=== PATIENT | female | born 1975 | race Caucasian/White ===

== ENCOUNTER 2025-01-31 07:20 | Emergency (ER) | payer BC, SELFPAY ==
--- OUTSIDE RECORDS SUMMARY | 2025-01-31 07:23 | XMS_ITS | Clinical Summary ---
Author Organization [facility] Address [address] [place] [id number] Care Team Providers Care Basic Sciences Dean Name Role Phone Karen Larkin MD Primary Care Provider Allergies No known active allergies Medications chlorthalidone (HYGROTON) 25 mg tabletIndications:P rimary hypertension Take 1 Tablet (25 mg) by mouth once daily. 100 Tablet 3 4 Active escitalopram oxalate (LEXAPRO) 20 mg tabletIndications:G AD (generalized anxiety disorder) Take 1 Tablet (20 mg) by mouth once daily in the morning. 100 Tablet 3 4 Active levothyroxine (SYNTHROID) 25 mcg tabletIndications:H ypothyroidism (acquired) Take 1.5 Tablets (37.5 mcg) by mouth before breakfast. 135 Tablet 3 4 Active ondansetron (ZOFRAN ODT) 4 mg disintegrating tabletIndications:N ausea [address] 1 Tablet (4 mg) on the tongue every 8 hours if needed for Nausea/Vomit ing. 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 Chronic gastritis 06/16/2018 Endometriosis of pelvic peritoneum 09/08/2011 Resolved Problems Problem Noted Date Diagnosed Date Resolved Date Screening for cervical cancer 12/12/2022 12/12/2022 Immunizations Immunization Administration Dates Next Due COVID-19 vaccine ([employer] 30mcg/0.3mL) PF, MDV 10/22/2021,03/12/2021,02/18/2021 Influenza A (H1N1), Inactivated 12/07/2009 Influenza, IIV3 (Age 6-35 mos) 09/08/2011 Influenza, IIV3 (Age >=3 years) 09/08/2011,08/28 Influenza, IIV4 08/17/2019, 7,08/20/2016,2012 Influenza,CCIIV4 PRESERV FREE 09/17/2018 Td, Preservative Free (age > = 7 Years) 07/08/2019 Tdap 07/07/2024 Family History Medical History Relation Name Comments Diabetes type I Father Hyperlipidemia Father Hypertension Father Diabetes type II Mother Hyperlipidemia Mother Hypertension Mother Genetic Other DM--Father,Sist er~HI--PGF~HTN--Mother Diabetes type I Sister Cancer-breast No Family History Cancer-ovarian No Family History Relation Name Status Comments Father Mother Other Sister Social History Tobacco Use Types Packs/Day Years Used Date Smoking Tobacco: Never Smokeless Tobacco: Never Tobacco Cessation:Counseling Given: Not Answered Alcohol Use Standard Drinks/Week Comments Not Currently 0 (1 standard drink = 0.6 oz pur e alcohol) socially PHQ-2 Answer Date Recorded PHQ-2 TOTAL SCORE 0 08/04/2024 Social Connections Answer Date Recorded Do you often feel lonely or isolated from those around you? 0 12/11/2023 Financial Resource Strain Answer Date R ecorded Difficulty of Paying Living Expenses 3 12/11/2023 Difficulty of Paying Living Expenses Not on file 12/11/2023 Food Insecurity Answer Date Recorded Do you worry your food will run out before you are able to buy more? 1 12/11/2023 Transportation Needs Answer Date Record ed Does lack of transportation keep you from medica l appointments? 1 12/11/2023 Does lack of transportation keep you from work, meetings or getting things that you need? 1 12/11/2023 Housing Stability Answer Date Recorded What is your housing situation today? 1 12/11/2023 Utilities Answer Date Recorded Do you have trouble paying f or utilities (for example, heat, electricity, water, phone)? 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 Gender Identity Not on file Sexual Orientation Not on file Obstetrics History Last Filed Vital Signs Vital Sign Reading Time Taken Comments Blood Pressure 129/84 08/04/2024 10:02 AM CDT Pulse 80 08/04/2024 10:02 AM CDT Temperature 36.8 C (98.3 F) 03/01/2024 11:57 AM CDT Respiratory Rate 18 07/06/2022 9:34 AM CDT Oxygen Saturation 99% 08/04/2024 10:02 AM CDT Inhaled Oxygen Concentration - - Weight 76.2 kg (168 lb) 08/04/2024 10:02 AM CDT Height 172.8 cm (5' 8.03) 12/25/2023 3:35 PM CS T Body Mass Index 25.52 12/25/2023 3:35 PM EQUIPMENT PROCESSOR Plan of Treatment Health Maintenance Due Date Last Done Comments HIV for age 15-65 1989 Hepatitis C screening for ag e 18-79 1992 Pneumococcal series for age 50+ (1 of 1 - PCV) 2024 Zoster (shingles) series for age 50+ (1 of 2) 2024 COVID-19 vaccine series (2023- season) 2024 10/22/2021, 03/12/2021, 02/18/2021 Influenza Vaccine (#1) 2024 9, 09/17/2018, 08/26/2017, Additional history exists BMI (ht and wt on same day) for age 18+ 12/25/2024 12/25/2023, 12/12/2022, 07/23/2022, Additional history exists Mammogram for age 45-75 07/07/2025 07/07/20 24, 12/19/2022, 05/10/2021 Depression screening for age 12+ 08/04/2025 08/04/2024, 12/12/2022, 08/16/2021, Additional history exists Lipids for age 45-75 12/25/2028 12/25/2023, 12/12/19 23 Colonoscopy through age 75 01/10/2033 01/10/2023 Tetanus booster 07/07/2034 07/07/2024, 07/08/2019 Tdap Completed 07/07/2024 Pap test for age 21-65 Discontinued Procedures Procedure Name Priority Date/Time Associated Diagnosis Comments XR MAMMO TEGAN BILAT SCREEN IMPLANT Routine 07/07/2024 3:23 PM CDT Visit for screening mammogram LIPID PANEL W REFLEX MEASURED LDL Routine 12/25/2023 4:30 PM EQUIPMENT PROCESSOR Lipid screening SCAN-COLONOSCOPY 01/10/2023 3:00 PM EQUIPMENT PROCESSOR from Last 3 Months or Most Recently Relevant to Health Maintenance Results * XR MAMMO TEGAN BILAT SCREEN IMPLANT (07/07/2024 3:23 PM CDT) Anatomical Region Laterality Modality BREASTS, Breast Left, Breast Right Bilateral Mammography Impressions 07/07/2024 3:32 PM CDT There is no radiographic evidence for malignancy. Recommend annual mammograms. MAMMOGRAM ASSESSMENT: ACR 2 Benign PATIENTS: You will also receive a letter with your examination results in an easy to read format. If you have questions about your results, please contact your referring provider. Narrative 07/07/2024 3:32 PM CDT For Patients: As a result of the Century Cures Act, medical imaging exams and procedure reports are released immediately into your electronic medical record. You may view this report before your referring provider. If you have questions, please contact your health care provider. XR MAMMO TEGAN BILAT SCREEN IMPLANT [[id number]] CLINICAL HISTORY: This is an asymptomatic 49 y.o. patient. INDICATION FOR EXAM: Mammogram Screening. TECHNIQUE: CC & MLO views were obtained. Implant displacement views were obtained. This study was evaluated with the assistance of Computer-Aided Detection. Breast Tomosynthesis was used in interpretation. COMPARISON FILMS: Yes 12/19/22 [facility] 05/10/21 [facility] FINDINGS: There are scattered areas of fibroglandular density. No suspicious masses or microcalcifications. There are breast implant(s) present.. us Karen Larkin MD MAMMO Final Resul t * (ABNORMAL) LIPID PANEL W REFLEX MEASURED LDL (12/25/2023 4:30 PM EQUIPMENT PROCESSOR) CHOLESTEROL,TOTAL 204(H) 100 - 199 mg/dL 12/26/2023 3:07 PM EQUIPMENT PROCESSOR [facility] Comment: Cholesterol, Total Reference Ranges Desirable <200 mg/dL Borderline 200-239 mg/dL High >=240 mg/dL TRIGLYCERIDES 80 <150 mg/dL 12/26/2023 3:07 PM EQUIPMENT PROCESSOR [facility] HDL CHOLESTEROL 87 >40 mg/dL 3:07 PM EQUIPMENT PROCESSOR [facility] NON-HDL CHOLESTEROL 117 <145 mg/dl 12/26/2023 3:07 PM EQUIPMENT PROCESSOR [facility] CHOL/HDL RATIO 2.34 <4.50 12/26/2023 3:07 PM EQUIPMENT PROCESSOR [facility] LDL CHOLESTEROL 101 <=130 mg/dL 12/26/2023 3:07 PM EQUIPMENT PROCESSOR [facility] VLDL CHOLESTEROL 16 <=30 mg/dL 12/26/2023 3:07 PM EQUIPMENT PROCESSOR [facility] PROVIDER ORDERED STATUS RANDOM 12/26/2023 3:07 PM EQUIPMENT PROCESSOR [facility] Blood BLOOD SPECIMEN / Unknown Venipuncture / Unknown 12/25/2023 4:30 PM EQUIPMENT PROCESSOR 12/25/2023 4:30 PM EQUIPMENT PROCESSOR us Karen Larkin MD CHEMISTRY Final Resul t [facility] [address] [place] [address], [place] * SCAN-COLONOSCOPY (01/10/2023 3:00 PM EQUIPMENT PROCESSOR) Narrative Procedure Note Bernardo Motley MD - 01/10/2023 2:11 PM CST [facility] [address], [address], [place] [address] Patient Name: Marisa Uriarte Gender: Female Exam Date: 01/10/2023 Visit Number: [id number] Age: 47 Years Date of : 1975 Attending MD: Bernardo Motley MD Medical Record#: [id number] Procedure: Colonoscopy Indications: Diarrhea Follow up adenomatous polyp(s) Referring MD: Karen Larkin MD Primary MD: Karen Larkin MD Medications: Admitting Medications: 0.9% Normal Saline at TK Intra Procedure Medications: Patient received monitored anesthesia care. Complications: No immediate complications Procedure: An examination of the heart and lungs was performed and found to be withinacceptable limits. . The patient was therefore deemed a reasonablecandidate for endoscopy and sedation. The risks and benefits of the procedure were explained to the patient.After obtaining informed consent, the patient received monitoredanesthesia care and I passed the scope without difficulty via the rectum to the ileum. The appendiceal orificeand ic valve were identified. The scope was retroflexed during theexamination The quality of the prep was good (Aron/Gat Double Split). This was a complete examination throughout the entire colon. Findings: Normal finding. Location - ileum. Normal finding. Location - entire colon otherwise. Biopsy taken.Maneuver - random biopsies. Polyp location: descending colon. Quantity: 2. Size: 3 mm, 3 mm. Polypshape: sessile. Maneuver: polypectomy was performed with a cold snare. Removal: complete. Retrieval: complete. Bleeding: none. Diverticulosis. Location: - sigmoid. Size: small. Quantity:few. No inflammation present. Hemorrhoids. Small internal hemorrhoids without bleeding. Remainder of the exam is normal. Impression: Colorectal polyps Diverticulosis of colon without diverticulitis Hemorrhoids, internal Preliminary Plan: Repeat colonoscopy in 5 years Recommendation Comments: We will follow up the biopsy results and let youknow once available Pathology Results: A: COLON, DESCENDING, POLYPS: 1. Tubular adenomas (2) 2. Negative for high grade dysplasia 3. Per the colonoscopy report: a. Polyp sizes: 3 mm b. Resection: Complete c. Retrieval: Complete B: COLON, RANDOM, BIOPSY: 1. Normal colonic mucosa 2. Negative for microscopic, active, and chronic colitis MICROSCOPIC A: Performed B: Performed Electronically signed by: Masoud Pruett MD Interpreted at [facility], [address] [place], [place] [id number] Orders Instruction(s)/Education: Instruction/Education Timeframe Assessment Colon Cancer Prevention K63.5 Colon Polyps K63.5 Diverticulosis/Diverticulitis K63.5 Hemorrhoids K63.5 High Fiber Diet K63.5 Final Plan: Repeat colonoscopy in 5 years. We will attempt to contact you at appropriate intervals via U.S. mail. Wemay not be able to find you or contact you at that time, therefore youshould know that the responsibility for following our recommendation restswith you. If you don't hear from us at the time your procedure is due,please contact our office to schedule an appointment. If your contactinformation should change, please contact our office so that we can updateyour record. _Electronically signed by: Jovany Lay MD 01/10/2023 cc: Karen Larkin MD cc: Karen Larkin MD Bernardo Motley MD OTHER Final Res ult from Last 3 Months or Most Recently Relevant to Health Maintenance Insurance [facility] AD[facility] Advance Directives * Full Code (Latest Code Status on File) Date Activated Date Inactivated Comments 06/11/2016 10:32 AM 06/13/2016 12:49 PM * Full Code Date Activated Date Inactivated Comments 04/07/2012 11:30 PM 04/09/2012 2:51 PM * Full Code Date Activated Date Inactivated Comments 04/07/2012 7:31 PM 04/07/2012 11:30 PM * Full Code Date Activated Date Inactivated Comments 04/07/2012 11:18 AM 04/07/2012 7:31 PM * Full Code Date Activated Date Inactivated Comments 09/06/2011 4:19 PM 09/09/2011 2:06 PM Care Teams Basic Sciences Dean Relationship Specialty Start Date End Date Karen Larkin MD [address] [place] [address] PCP - General Family Practice 09/25/23
--- OUTSIDE RECORDS SUMMARY | 2025-01-31 07:23 | XMS_ITS | Clinical Summary ---
Author Organization [facility] Address [address] [place] [address] Care Team Providers Care Fire Medic Name Role Phone Hair Carnes MD Unavailable [phone] Karen Larkin MD Primary Care Provider [phone] Allergies No known active allergies Medications chlorthalidone (HYGROTON) 25 MG tablet Take 25 mg by mouth daily 03/10/2024 Active escitalopram (LEXAPRO) 20 MG tablet Take 20 mg by mouth daily 03/19/2024 Active levothyroxine (SYNTHROID/LEVOT HROID) 25 MCG tablet Take 37.5 mcg by mouth daily 12/29/2023 Active Active Problems Patient Care Coordination No te Formatting of this note migh t be different from the original. [email or web address] Problem Noted Date Diagnosed Date Dyspnea on exertion 03/23/2024 Nonspecific abnormal electrocardiogram (ECG) (EK G) 03/23/2024 Resolved Problems Problem Noted Date Diagnosed Date Resolved Date Midline low back pain without sciatica 08/30/2015 08/30/2015 Episodic tension-type headac he, not intractable 08/30/2015 12/12/2015 Bilateral thoracic back pain 08/30/2015 12/12/2015 Social History Tobacco Use Types Packs/Day Years Used Date Smoking Tobacco: Never Smokeless Tobacco: Never Alcohol Use Standard Drinks/Week Comments Not Asked 0 (1 standard drink = 0.6 oz pur e alcohol) Adolescent Education Answer Date Record ed Getting School Help Needed Not on file 03/15 Comments No Sex and Gender Information Value Date Recorded Sex Assigned at Not on file 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 Gender Identity Not on file Sexual Orientation Not on file Last Filed Vital Signs Vital Sign Reading Time Taken Comments Blood Pressure 124/93 04/22/2024 1:27 PM CDT Pulse 87 04/22/2024 1:27 PM CDT Temperature 36.6 C (97.9 F) 03/15/2024 8:40 AM CDT Respiratory Rate 12 03/23/2024 8:41 AM CDT Oxygen Saturation 99% 03/15/2024 11:46 AM CDT Inhaled Oxygen Concentration - - Weight 89 kg (196 lb 4.8 oz) 03/23/2024 8:41 AM CDT Height 172.7 cm (5' 8) 03/23/2024 8:41 AM CDT Body Mass Index 29.85 03/23/2024 8:41 AM CDT Plan of Treatment Health Maintenance Due Date Last Done Comments ADVANCE CARE PLANNING 1975 ANNUAL REVIEW OF HM ORDERS 1975 CT COLONOGRAPHY 1975 FIT 1975 FLEX SIG 1975 sDNA (Cologuard) 1975 HIV SCREENING 1989 HEPATITIS C SCREENING 1992 HEPATITIS B IMMUNIZATION (1 of 3 - 19+ 3-dose series) 1993 Pneumococcal Vaccine: 50+ Years (1 of 2 - PCV) 1993 PAP 1995 LIPID 2014 DTAP/TDAP/TD IMMUNIZATION (1 - Tdap) 07/09/2019 07/08/2019 ZOSTER IMMUNIZATION (1 of 2) 2024 COVID-19 Vaccine ( - season) 2024 10/22/2021, 03/12/2021, 02/18/2021 INFLUENZA VACCINE (#1) 2024 9, 09/17/2018, 08/26/2017, Additional history exists PHQ-2 (once per calendar year) 2024 MAMMO SCREENING 12/19/2024 12/19/2022 YEARLY PREVENTIVE VISIT 12/25/2024 12/25/19 24, 12/12/2022, 02/14/2021 TSH W/FREE T4 REFLEX 03/15/2025 03/15/2024 DIABETES SCREENING 03/15/2027 03/15/2024, 0 11/10/2018, 01/16/2015, Additional history exists COLONOSCOPY 01/10/2033 01/10/2023 COLORECTAL CANCER SCREENING 01/10/2033 HPV IMMUNIZATION Aged Out No longer e ligible based on patient's age to complete this topic MENINGITIS IMMUNIZATION Aged Out No l onger eligible based on patient's age to complete this topic Procedures Procedure Name Priority Date/Time Associated Diagnosis Comments BASIC METABOLIC PANEL STAT 03/15/2024 9:26 AM CDT TSH STAT 03/15/2024 9:26 AM CDT from Last 3 Months or Most Recently Relevant to Health Maintenance Results * (ABNORMAL) TSH (03/15/2024 9:26 AM CDT) TSH 4.49(H) 0.30 - 4.20 uIU/mL 03/15/2024 10:06 AM CDT [facility] Blood BLOOD SPECIMEN / Unknown Venipuncture / Unknown 03/15/2024 9:26 AM CDT 03/15/2024 9:33 AM CDT Alon Arndt DO LAB - BLOOD ORDERABLES F inal Result [facility] [address] [place] [address], [facility] * (ABNORMAL) Basic metabolic panel (03/15/2024 9:26 AM CDT) Sodium 136 135 - 145 mmol/L 03/15/2024 10:06 AM CDT [facility] Comment:Reference intervals for this test were updated on 08/05/2023 to more accurately reflect our healthy population. There may be differences in the flagging of prior results with similar values performed with this method. Interpretation of those prior results can be made in the context of the updated reference intervals. Potassium 3.5 3.4 - 5.3 mmol/L 03/15/2024 10:06 AM [facility] Chloride 98 98 - 107 mmol/L 03/15/2024 10:06 AM [facility] Carbon Dioxide (CO2) 27 22 - 29 mmol/L 03/15/2024 10:06 AM [facility] Anion Gap 11 7 - 15 mmol/L 03/15/2024 10:06 AM [facility] Urea Nitrogen 11.2 6.0 - 20.0 mg/dL 03/15/2024 10:06 AM [facility] Creatinine 0.74 0.51 - 0.95 mg/dL 03/15/2024 10:06 AM [facility] GFR Estimate >90 >60 mL/min/1. 73m2 03/15/2024 10:06 AM [facility] Calcium 9.6 8.6 - 10.0 mg/dL 03/15/2024 10:06 AM [facility] Glucose 118(H) 70 - 99 mg/dL 03/15/2024 10:06 AM [facility] Blood BLOOD SPECIMEN / Unknown Venipuncture / Unknown 03/15/2024 9:26 AM CDT 03/15/2024 9:33 AM CDT Alon Arndt DO LAB - BLOOD ORDERABLES F inal Result [facility] [address] [place] [address], [facility] from Last 3 Months or Most Recently Relevant to Health Maintenance Insurance [employer] Care Teams Fire Medic Relationship Specialty Start Date End Date Karen Larkin MD [address] [place] [address] PCP - General 04/20/24 Hair Carnes MD [address] [address] Assigned Heart and Vascular Provider 04/01/24
--- OUTSIDE RECORDS SUMMARY | 2025-01-31 07:23 | XMS_ITS | Data Portability ---
Author Organization [place] [id number] Address [address] [address] Assessment Encounter Date Assessment Date Assessment LastModified by Organization Details LastModified Time 02/14/2021 02/14/2021 std screening--re v with pt [email or web address] Not available 02/16/2021 00:20:10 Plan of Treatment Reminders Order Date Submit Date Provider Last Modified By Organization Details Last Modified Time Details Appointments None recorded. Lab pap, LB + reflex HR HPV 2020 021 [facility], [address] [place], [address], 12:16:15 Referral None recorded. Procedures None recorded. Surgeries None recorded. Imaging US, transvagina l 2020 021 [email or web address] [id number] [facility], [address] [place] [address], Suite [facility], [place], [address], 09:53:55 US, transvagina l 2020 021 [email or web address] [id number] [facility], [address] [place] [address], [address], [address], 23:50:52 Medication Orders None recorded. Patient TargetsNo targets recorded. Patient InstructionsNo instructions recorded. Reason for Referral None Reported. Results Created Date Observation Date Name Description Value Unit Range Abnormal Flag Note LastModifiedBy Organization Detail LastModifiedTime 02/15/20 21 02/14/2021 pap, LB + refle x HR HPV case report See note CASE REPOR T ----- ----- ----- ----- ----- ----- ----- ----- Pap Smear Case: [id number] rosado Provi ginette: Cynthia Farris MD Colle cted: 02/14 04:31 PM Order ing [facility]at [facility] jarrod: 02/15 08:42 AM [facility] Labor atory First Scree n: Sapphire Maravilla Rescr een: So Rogers Specairam men: Vagin al Thin Prep (HPV Refle x) Image r Sceen emma, Vagin a ===== ===== ===== ==== = INTER PRETA TION: = ===== ===== ===== ==== Negat amanda for intra epith elial lesio n or ricki maldonado cells . Elect rene rivera by So Rogers on 2020 at 11:15 AM SPECI VENANCIO ANTON ACPatricio ----- ----- ----- ----- ----- ----- ----- ----- Satis facto ry for evalu ation . CLINI REAL INFOR MATIO N ----- ----- ----- ----- ----- ----- ----- ----- Hyste recto my (Cerv ix Absen t) LMP ----- ----- ----- ----- ----- ----- ----- ----- N/A PAP DISCL AIMER ----- ----- ----- ----- ----- ----- ----- ----- This speci men was scree jaiden by the ThinP rep Imagi ng Syste m prior to annea beatriz revie w by a cytot echno logis t and/o r patho logis t. The Pap test is a scree meliton test and has an irred ucibl e false -nega tive rate. Routi ne perio dic testi ng and follo w-up of unexp crystal d clini real signs and sympt oms are impor tant to minim ize the conse quenc e of false -nega tive Pap tests . Flavia rivera et al. 2012 Updat ed Conse nsus Guide lines for the Manag ement of Abnor mal Cervi real Cance r Scree meliton Tests and Cance r Precu rsors . J Low Genit Tract Dis 2013; 17 (5): S2-S2 7 Not Available [place] [address] [place], [address], 02/22/2021 12:16:15 02/16/20 21 02/15/2021 hemog lobin (Hb), blood hemoglobin 13.0 gm/dL 12.0-1 6.0 Not Available [place] [address] [place], [address], 02/16/2021 04:06:43 02/16/20 21 02/15/2021 T4, free, serum T4 free 0.87 NG/dL 0.76-[address] [facility] [address] [place], [address], 02/16/2021 04:06:44 02/16/2002/15/2021 lipid panel , blood specimen type Not Available [facility] [address] [place], [address], 02/16/2021 04:06:45 02/16/20 21 02/15/2021 lipid panel , blood cholesterol 189 mg/dL <[address] [facility] [address] [place], [address], 02/16/2021 04:06:45 02/16/20 21 02/15/2021 lipid panel , blood triglyceride s profile 77 mg/dL <150 Not Available [place] [address] [address] [place], [address], 02/16/2021 04:06:45 02/16/20 21 02/15/2021 lipid panel , blood LDL chol, calc 88 mg/dL <100 Not Available [place] [address] [address] [place], [address], 02/16/2021 04:06:45 02/16/2002/15/2021 lipid panel , blood HDL cholesterol 86 mg/dL >40 Not Available [facility] [address] [place], [address], 02/16/2021 04:06:45 02/16/20 21 02/15/2021 lipid panel , blood chol/HDL ratio 2.2 0.0-4. 9 Not Available [place] [address] [address] [place], [address], 02/16/2021 04:06:45 02/16/2002/15/2021 gluco se, fasti ng glucose, fasting 91 mg/dL 50-100 Not Available [place] [address] [address] [place], [address], 02/16/2021 04:06:45 02/16/2002/15/2021 thyro tropi n, quant , blood TSH 2.240 uIU/m L 0.358- 3.[address] [facility] [address] [place], [address], 02/16/2021 04:06:46 02/16/20 21 02/15/2021 25-hy droxy vitam in D2 + 25-hy droxy vitam in D3, QN, serum or plasm a vitamin D total (25-hydroxy) 22 NG/mL 30-90 low Not Available [facility] [address], [place], [address], 02/16/2021 04:06:47 02/15/20 21 US, trans vagin al No observ ation record ed. [facility] [address], [place], [address], 02/19/2021 15:43:26 Result Notes None recorded. Problems Name Problem SNOMED Code Status Onset Date Resolution Date Notes Provider Name and Address Organization Details Recorded Time History of endometrio sis 4217389114778 4107 Active Sabine Wanless null, [place] [facility] 09:18:03 Irritable bowel syndrome 64083814 Active Sabine Wan[place] null, [place] [facility] 15:57:16 Cyst of ovary 87718448 Active Not Available [facility] 0 05:07:49 Problem Notes None recorded. Procedures Surgical History Date Name Laterality Status Provider Name and Address Organization Details Recorded Time 01/22/20 18 Date of Last Pap Smear completed Sabine Thomasless [place] [facility] 01/10/2021 09:10:24 endometrial ablation completed Sabine hTomasless [place] - [facility] 02/14/2021 15:56:41 ligation of bilateral fallopian tubes completed Sabine Wanless [place] [facility] 02/14/2021 15:56:41 Removal of ovarian cyst(s) completed Sabine Williamless [place] [facility] 02/14/2021 15:56:41 section completed Sabine Thomasless [place] [facility] 02/14/2021 15:56:41 rectal operations NOS completed Sabine Williamless [place] [facility] 02/14/2021 15:56:41 salpingectomy NOS completed Sabine Williamless [place] [facility] 02/14/2021 15:56:41 laparoscopic excision of pelvic endometriosis completed [facility] 02/14/2021 15:56:41 laparoscopic-assi sted vaginal hysterectomy completed [facility] 02/14/2021 15:56:41 vaginal urethrolysis completed [facility] 02/14/2021 15:56:41 augmentation of breast with immediate insertion of breast prosthesis completed [facility] 02/14/2021 15:56:41 Imaging Results Imaging Date Name Status LastModified by Organization Details LastModified Time 02/14/2021 US, transvaginal completed [facility] [address], [place], [address], 02/19/2021 15:43:26 Procedure Notes None recorded. Medical Equipment None Reported. Allergies No known drug allergies Medications Name Sig Start Date Stop Date Status Note LastModified by Organization Details LastModified Time ketorolac 10 mg tablet TAKE 1 TABLET BY MOUTH FOUR TIMES DAILY NEEDED active Not Available Not Available No t Available escitalopram 10 mg tablet TAKE 1 TABLET BY MOUTH EVERY DAY active Not Available Not Available No t Available Vitals Date Recorded Body height Body mass index (BMI) Body weight Systolic blood pressure Diastolic blood pressure Provider Name and Address Organization Details Last Updated DateTime 02/14/2021 170.18 cm 31.5 kg/m2 59902.07 g 136 mm[Hg] 78 mm[Hg] [facility] 15:56:21 Social History Question Answer Notes LastModified by Organizat ion Details LastModified Time Tobacco Smoking Status Never Smoker Tobacco *Status: Never Not Available [facility] 09/12/2020 03:59:30 Do You Have An Advance Directive? No Does Not Have A Health Directive [id number] Information not available 09/12/2020 What Is Your Level Of Alcohol Consumption? Occasional Alcohol *Status: Current Some Day [id number] Information not available 09/12/2020 What Is Your Level Of Caffeine Consumption? 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 No Does Not Perform Monthly Breast Exams Information not available 06/19/2020 Are You Sexually Active? Yes Currently Sexually Active Information not available 02/14/2021 Sex: Unknown Functional Status Question Answer Note LastModified by Organizat ion Details LastModified Time What is your exercise level? Moderate Exercise on a Regular Basis Information not available 02/14/2021 Mental Status None recorded. Family History Relationship Description Onset Age of this Age Resolved Age Notes LastModified by Organization Details LastModified Time Mother Family history of Arthritis Family Histor y of Rheuma toid Arthri tis hwanless Not available 02/14/2021 15:56:27 Mother Family history of endocrine disorders Family Histor y of Thyroi d Disord er: Graves hwanless Not available 02/14/2021 15:56:27 Mother Family history of Cardiovascul ar disease Family Histor y of Hypert ension hwanless Not available 02/14/2021 15:56:27 Sister Family history of Anemia Family Histor y of Anemia hwanless Not available 02/14/2021 15:56:27 Sister Family history of neurological disorder Family Histor y of Multip le Sclero sis hwanless Not available 02/14/2021 15:56:27 Sister Family history of diabetes mellitus Family Histor y of Diabet es: type1 hwanless Not available 02/14/2021 15:56:27 Paternal Grandmother Family history of malignant neoplasm of urinary bladder Family Histor y of Cancer ; Bladde r hwanless Not available 02/14/2021 15:56:27 Father Family history of Cardiovascul ar disease Family Histor y of Hypert ension hwanless Not available 02/14/2021 15:56:27 Father Family history of diabetes mellitus Family Histor y of Diabet es: type1 hwanless Not available 02/14/2021 15:56:27 Maternal Aunt Family history of endocrine disorders Family Histor y of Thyroi d Disord er: Graves hwanless Not available 02/14/2021 15:56:27 Maternal Grandmother Family history of malignant neoplasm of urinary bladder Family Histor y of Cancer ; Evelina roeless Not available 02/14/2021 15:56:27 Medical History Condition Response Psych- Anxiety Disorder Y Hematology- Anemia Psych- Eating Disorder N Gynecological History Statement/Question Response History of Vulvar Dysplasia N HPV Test Positive Date of Last Mammogram Date of LMP History of Cervical Dysplasia N Sexual Orientation Heterosexual History of Infertility N Sexually Active Y History of Gestational Diabetes N What is the patient's current relationsh ip to the practice? Co-Management History of PCOS N History of Endometriosis Y History of Abnormal PAP Y History of Recurrent Ovarian Cysts Y Total lifetime partners More than 5 Date of last bone density Post Menopausal Hormone Therapy User Nev er Age at Menarche: 11 History of Sexually Transmitted Infectio n Y HPV Vaccine Not Applicable Current Control Method Hysterectom y History of Fibroids N Urinary Incontinence Symptoms N Date of Last Pap Smear 01/21/2018 History of Dysmenorrhea Y Obstetrics History GPAL:G 2 P 2 0 0 2 Type Value Multiple Births 0 Full Term 2 Induced 0 Spontaneous 0 Premature 0 Living 2 Ectopics 0 Total 2 Past Encounters Encounter ID Performer Location Encounter Start Date Encounter Closed Date Diagnosis/Indication Diagnosis SNOMED-CT Code Diagnosis ICD10 Code Diagnosis Note [id number] Tresa Farris MD [id number] [place] [address] [address] 02/14/2021 15:26:21 02/27/2021 16:39:06 Screening for malignant neoplasm of cervix 294834459 Z12.4 Endometrio sis of pelvis 84886736 N80.3 HS AND SP HYS AND LSO SO US FOR FU ENDO Menopausal symptom 34874 002 N95.1 SYMP RE AND RX REV AND IF WORSE CALL [id number] Tresa Farris MD [id number] TETE VILLALOBOS Y [address] [address] 02/14/2021 16:51:13 02/14/2021 17:27:19 Endometriosis of pelvis 36626341 N80.3 Health Concerns Section Related Observation LastModified by Organization Detai ls LastModified Time None Recorded Concern Status LastModified by Organization Details LastModified Time None Recorded Advance Directives Directive N: Does Not have a Health Di rective Payers Encounter Date Sequence Insurance Name Policy Number Policy Diaz Covered Member ID Diaz Member ID Guarantor Name 02/14/2021 1 [facility] [id number] Aracelis Zhou Uriarte [id number] Aracelis Uriarte 02/14/2021 1 [facility] [id number] Aracelis Zhou Uriarte [id number] Aracelis Uriarte Notes Date Note Type Note Provider Name and Address Organization Details Recorded Time 02/14/2021 text/html Reason For Visit Reason For Visit - Other general annual exam with questions about menopause and thyroid Imported from [employer] on 02/14/2021 [place] [address] [facility],[address], [place], [address], [place] [facility] 02/27/2021 13:01:27 OBGyn Episode No OBEpisode recorded.
[2025-01-31 07:25] VITALS: BP 144/81; PULSE 83; RESP 18; TEMP 36.9; O2SAT 99; BMI 23.6
--- NOTE | 2025-01-31 07:42 | ED_ITS ---
HPI - General Adult General Time Seen by Provider: 07:42 <Myrna Diamond MD - Last Filed: 02/02/25 14:11> Date Seen: 01/31/25 <Myrna Diamond MD - Last Filed: 02/02/25 14:11> Chief complaint: Hip Injury/Pain <Myrna Diamond MD - Last Filed: 02/02/25 14:11> Stated complaint: severe pelvic pain <Myrna Diamond MD - Last Filed: 02/02/25 14:11> Time Seen by Provider: 01/31/25 07:41 <Myrna Diamond MD - Last Filed: 02/02/25 14:11> Source: patient and RN notes reviewed <Myrna Diamond MD - Last Filed: 02/02/25 14:11> Mode of arrival: ambulatory <Myrna Diamond MD - Last Filed: 02/02/25 14:11> Limitations: no limitations <Myrna Diamond MD - Last Filed: 02/02/25 14:11> History of Present Illness HPI narrative: Marisa is a very pleasant 49-year-old female previously healthy who comes to the emergency room with complaints of right hip and pelvic pain. Marisa notes that she has recently return from [place] and that she started having hip pain while seated on the plane. Since that time and in spite of a trial of prednisone yesterday her hip pain is increasing. She states that she is even walking funny-like a cowboy. She notes that movement greatly increases her discomfort. Well initially it seemed the pain was in the right hip it is now radiating across her lower abdomen into her left hip. Does not have an appendix. She had a history of endometriosis and only has her right ovary left. She notes that the discomfort seems to radiate down the proximal thighs as well. Had a normal bowel movement which did not change her pain. No dysuria hematuria unusual fever. She cannot recall any specific injury during her trip or previous injury. Denies numbness or tingling of the extremities. <Myrna Diamond MD - Last Filed: 02/02/25 14:11> Related Data Home medications: Home Medications ?Medication ?Instructions ?Recorded ?Confirmed escitalopram oxalate 20 mg tablet 20 mg PO QAM 01/31/25 01/31/25 levothyroxine 25 mcg tablet 37.5 mcg PO QAM 01/31/25 01/31/25 Previous Rx's ?Medication ?Instructions ?Recorded hydrocodone 5 mg-acetaminophen 325 1 - 2 tab PO Q4-6H PRN pain #10 01/31/25 mg tablet tabs ketorolac 10 mg tablet 10 mg PO Q8H PRN pain #20 tabs 01/31/25 <Myrna Diamond MD - Last Filed: 02/02/25 14:11> Allergies/adverse reactions: Allergies Allergy/AdvReac Type Severity Reaction Status Date / Time No Known Drug Allergies Allergy Verified 01/31/25 07:32 <Myrna Diamond MD - Last Filed: 02/02/25 14:11> Review of Systems Status of ROS: Reports: 6 or more systems reviewed and unremarkable except as noted in History and below <Myrna Diamond MD - Last Filed: 02/02/25 14:11> [facility] [facility] History: Social History Smoking Status: Never smoker How often do you have a drink containing alcohol: monthly or less AUDIT-C Alcohol total score: 1 Non-prescribed substance use: denies use <Myrna Diamond MD - Last Filed: 02/02/25 14:11> Exam Narrative: Exam Narrative: Marisa is alert and oriented. Very pleasant woman in no acute distress. Mentating normally. Face symmetrical. Heart with regular rate and rhythm without murmur or rub. Lungs are clear bilaterally. Palpation of the abdomen does show some mild tenderness in the right lower quadrant. No rebound tenderness. Passive motion of the right hip with straight leg raise internal external rotation of the hip or abduction is without any discomfort. Patient had sudden increased pain with abduction over the midline. No pain with movement of the left leg. Distally sensation and motor appears to be intact. <Myrna Diamond MD - Last Filed: 02/02/25 14:11> Const: Vital Signs, click to edit/add: Vital Signs - 24 hr 01/31/25 07:25 01/31/25 09:41 01/31/25 11:40 Temperature 98.4 F 98.5 F 97.7 F Pulse Rate [Right Pulse Oximeter] 83 71 72 Respiratory Rate 18 18 18 Blood Pressure [Ri ght Upper Arm] 144/81 H 121/90 H 122/86 Pulse Oximetry 99 99 100 Oxygen Delivery Me thod Room Air Room Air Room Air <Myrna Diamond MD - Last Filed: 02/02/25 14:11> Vital Signs, click to edit/add: Vital Signs - 24 hr 01/31/25 07:25 01/31/25 09:41 01/31/25 11:40 Temperature 98.4 F 98.5 F 97.7 F Pulse Rate [Right Pulse Oximeter] 83 71 72 Respiratory Rate 18 18 18 Blood Pressure [Ri ght Upper Arm] 144/81 H 121/90 H 122/86 Pulse Oximetry 99 99 100 Oxygen Delivery Me thod Room Air Room Air Room Air <Nikita Buenrostro MD - Last Filed: 01/31/25 12:59> Documenting provider has reviewed patient's vital signs: yes <Myrna Diamond MD - Last Filed: 02/02/25 14:11> Course Course ED Course: Differential diagnosis includes but is not limited to labral tear, musculoskeletal strain, ovarian pathology. Patient is absent and appendix, has no fever chills. Given recent travel will do a CBC, CRP, comprehensive panel. Will also place an IV and do a trial of Toradol. At this time I have signed As it is shift change I have signed this patient out to my colleague Dr. Buenrostro. <Myrna Diamond MD - Last Filed: 02/02/25 14:11> Reevaluation(s) Reevaluation #1: Patient signed out to Dr. Buenrostro at about 9:00 a.m.-shift change. X-rays of the patient's right hip and pelvis came back normal. No evidence for fracture. Laboratory workup came back reassuring. White blood cell count normal. Hemoglobin normal. Platelet count normal. BMP normal save for mildly low potassium. LFTs normal. Urinalysis normal. Dr. Buenrostro recheck the patient. She does endorse atraumatic pain it started in her right hip but is now spreading all the way across her pelvis and feels more internal rather than muscular, to the patient. She is not running a fever. No nausea. She does have some chronic diarrhea but no new change in her stool pattern . Discussed the potential for diverticulitis or colitis or other GI infection after traveling to [place]. We decided to go ahead with pelvic CT imaging to look for inflammatory conditions. Patient does have history of endometriosis and has had previous surgical history including hysterectomy, appendectomy, left oophorectomy but does have her right ovary CT abdomen/pelvis IMPRESSION: 3.0 centimeter right adnexal cystic structure. Consider pelvic ultrasound for further evaluation. Discussed CT findings with the patient. Would recommend pelvic ultrasound for further characterization. Clinical presentation is not consistent with acute ovarian torsion and given the size of the ovarian cystic lesion, would not likely be large enough to create an ovarian torsion. She has no concern for STD and therefore we have no concern for PID/TOA at this time. Discuss the findings with the patient. We went ahead with pelvic ultrasound imaging today. Ultrasound pelvis IMPRESSION: 1. Complex mixed cystic and solid lesion with components of reticular echogenicities in the right ovary measuring up to 3.3 cm, favored to reflect a hemorrhagic cyst. Recommend follow-up pelvic ultrasound in 6-8 weeks. 2. Post hysterectomy and left oophorectomy. Discussed this with the patient. She understands. At this point we suspect that is probably this cyst that is causing her right hip bed and bilateral pelvi c pain. At this point plan will be supportive with pain control. She will follow up for outpatient follow-up imaging for her cyst. Also. Follow-up as needed outpatient with Ortho if the pain does seem to become more musculoskeletal in her hip. At this point I do not think she needs emergent hip MRI. There is no fever or inflammatory markers on her lab to raise concern for a septic arthritis in her hip. At this point I do not think she needs to be admitted for arthrocentesis or other invasive testing. Discussed the imaging studies with the patient, in detail. Questions answered. She is comfortable with the plan for discharge in outpatient management. She will follow-up with her primary care provider the [facility]. If hip pain is worsening her PCP will help her arrange orthopedic referral. Patient does not think a referral direct from the ER would be adequate because of her baseline insurance. Also discuss the ovarian lesion. She understands she needs follow-up for repeat pelvic ultrasound in about 6-8 weeks. Discussed the potential differential there. To manage her pain she will stick with [id number] medications or prescription Ketoralac. Also a short prescription for [place] provided. Opiate precautions reviewed. 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 Precautions for return to the ER reviewed and questions answered to the best my ability. <Nikita Buenrostro MD - Last Filed: 01/31/25 12:59> Vital Signs Vital signs: Initial Vital Signs Temperature 98.4 F 01/31/25 07:25 Temperature Source Temporal Artery Scan 01/31/25 07:25 Pulse Rate 83 01/31/25 07:25 Pulse Rhythm Regular 01/31/25 07:25 Pulse Strength 3+ Normal 01/31/25 07:25 Respiratory Rate 18 01/31/25 07:25 Blood Pressure 144/81 H 01/31/25 07:25 Blood Pressure Mean 102 01/31/25 07:25 Blood Pressure Position Sitting 01/31/25 07:25 Pulse Oximetry 99 01/31/25 07:25 Oxygen Delivery Method Room Air 01/31/25 07:25 Vital Signs Temperature 98.4 F 01/31/25 07:25 Pulse Rate 83 01/31/25 07:25 Respiratory Rate 18 01/31/25 07:25 Blood Pressure 144/81 H 01/31/25 07:25 Pulse Oximetry 99 01/31/25 07:25 Oxygen Delivery Method Room Air 01/31/25 07:25 Temperature 97.7 F 01/31/25 11:40 Pulse Rate 72 01/31/25 11:40 Respiratory Rate 18 01/31/25 11:40 Blood Pressure 122/86 01/31/25 11:40 Pulse Oximetry 100 01/31/25 11:40 Oxygen Delivery Method Room Air 01/31/25 11:40 <Myrna Diamond MD - Last Filed: 02/02/25 14:11> Initial Vital Signs Temperature 98.4 F 01/31/25 07:25 Temperature Source Temporal Artery Scan 01/31/25 07:25 Pulse Rate 83 01/31/25 07:25 Pulse Rhythm Regular 01/31/25 07:25 Pulse Strength 3+ Normal 01/31/25 07:25 Respiratory Rate 18 01/31/25 07:25 Blood Pressure 144/81 H 01/31/25 07:25 Blood Pressure Mean 102 01/31/25 07:25 Blood Pressure Position Sitting 01/31/25 07:25 Pulse Oximetry 99 01/31/25 07:25 Oxygen Delivery Method Room Air 01/31/25 07:25 Vital Signs Temperature 98.4 F 01/31/25 07:25 Pulse Rate 83 01/31/25 07:25 Respiratory Rate 18 01/31/25 07:25 Blood Pressure 144/81 H 01/31/25 07:25 Pulse Oximetry 99 01/31/25 07:25 Oxygen Delivery Method Room Air 01/31/25 07:25 Temperature 97.7 F 01/31/25 11:40 Pulse Rate 72 01/31/25 11:40 Respiratory Rate 18 01/31/25 11:40 Blood Pressure 122/86 01/31/25 11:40 Pulse Oximetry 100 01/31/25 11:40 Oxygen Delivery Method Room Air 01/31/25 11:40 <Nikita Buenrostro MD - Last Filed: 01/31/25 12:59> Medications Administered Medications: Discontinued Medications Generic Name Dose Route Start Last Admin Trade Name Freq PRN Reason Stop Dose Admin Ketorolac Tromethamine 15 mg 01/31/25 08:00 01/31/25 08:47 Ketorolac 15 Mg/Ml Inj IVP 01/31/25 08:01 15 mg ONCE ONE Administration <Myrna Diamond MD - Last Filed: 02/02/25 14:11> Discontinued Medications Generic Name Dose Route Start Last Admin Trade Name Freq PRN Reason Stop Dose Admin Ketorolac Tromethamine 15 mg 01/31/25 08:00 01/31/25 08:47 Ketorolac 15 Mg/Ml Inj IVP 01/31/25 08:01 15 mg ONCE ONE Administration <Nikita Buenrostro MD - Last Filed: 01/31/25 12:59> Medical Decision Making Lab Data Labs: Lab Results 01/31/25 Range/Units 08:15 WBC 6.74 (4.50-11.00) K/uL RBC 4.31 (4.00-5.20) m/uL Hgb 13.2 (12.0-16.0) gm/dL Hct 38.3 (33.0-51.0) % MCV 89 (80-100) fL MCH 31 (26-34) pg MCHC 35 (32-36) gm/dL RDW Coeff of Bill 13.9 (11.5-15.5) % Plt Count 228 (140-440) K/uL Neut % (Auto) 62.5 (42.0-72.0) % Lymph % (Auto) 25.5 (20-44) % [place] % (Auto) 10.7 (0.0-11.0) % Eos % (Auto) 0.7 (0.0-7.0) % Baso % (Auto) 0.3 (0.0-3.0) % Neut # (Auto) 4.21 (1.7-7.0) K/uL Lymph # (Auto) 1.72 (0.90-2.90) K/uL [place] # (Auto) 0.70 (0.00-0.90) K/UL Eos # (Auto) 0.05 (0.00-0.50) K/uL Baso # (Auto) 0.02 (0.00-0.30) K/uL Abs Immat Gran (auto) 0.02 (0.00-0.30) K/uL Imm/Tot Granulo (auto) 0.3 % Sodium 135 (135-149) mmol/L Potassium 3.2 L (3.6-5.1) mmol/L Chloride 99 (96-114) mmol/L Carbon Dioxide 29 (20-32) mmol/L Anion Gap 7 (7-15) mEq/L BUN 17 (7-30) mg/dL Creatinine 0.6 (0.5-1.5) mg/dL Estimated Creat Clear 113.16 Estimated GFR 109 ml/min Glucose 78 (60-115) mg/dL Calcium 9.3 (8.4-10.6) mg/dL Total Bilirubin 0.5 (0.1-1.5) mg/dL AST 27 (12-35) U/L ALT 22 (4-35) U/L Alkaline Phosphatase 56 (40-150) U/L C-Reactive Protein < 0.5 L (0.5-1.0) mg/dL Total Protein 6.9 (6.0-8.3) g/dL Albumin 4.1 (3.3-5.0) g/dL Urine Color Yellow (Yellow) Urine Appearance Clear (Clear) Urine pH 6.5 (5.0-8.5) Ur Specific [place] 1.015 (1.000-1.030) Urine Protein Negative (Negative) Urine Glucose (UA) Negative (Negative) Urine Ketones Negative (Negative) Urine Blood Negative (Negative) Urine Nitrite Negative (Negative) Urine Bilirubin Negative (Negative) Urine Urobilinogen 0.2 (0.2-1.0) Ur Leukocyte Esterase Negative (Negative) Urine RBC 0-2 (0-2) Urine WBC 0-2 (0-5) Ur Squamous Epith Cells Few (None-Few) Urine Bacteria None (None) <Myrna Diamond MD - Last Filed: 02/02/25 14:11> Lab Results 01/31/25 Range/Units 08:15 WBC 6.74 (4.50-11.00) K/uL RBC 4.31 (4.00-5.20) m/uL Hgb 13.2 (12.0-16.0) gm/dL Hct 38.3 (33.0-51.0) % MCV 89 (80-100) fL MCH 31 (26-34) pg MCHC 35 (32-36) gm/dL RDW Coeff of Bill 13.9 (11.5-15.5) % Plt Count 228 (140-440) K/uL Neut % (Auto) 62.5 (42.0-72.0) % Lymph % (Auto) 25.5 (20-44) % [place] % (Auto) 10.7 (0.0-11.0) % Eos % (Auto) 0.7 (0.0-7.0) % Baso % (Auto) 0.3 (0.0-3.0) % Neut # (Auto) 4.21 (1.7-7.0) K/uL Lymph # (Auto) 1.72 (0.90-2.90) K/uL [place] # (Auto) 0.70 (0.00-0.90) K/UL Eos # (Auto) 0.05 (0.00-0.50) K/uL Baso # (Auto) 0.02 (0.00-0.30) K/uL Abs Immat Gran (auto) 0.02 (0.00-0.30) K/uL Imm/Tot Granulo (auto) 0.3 % Sodium 135 (135-149) mmol/L Potassium 3.2 L (3.6-5.1) mmol/L Chloride 99 (96-114) mmol/L Carbon Dioxide 29 (20-32) mmol/L Anion Gap 7 (7-15) mEq/L BUN 17 (7-30) mg/dL Creatinine 0.6 (0.5-1.5) mg/dL Estimated Creat Clear 113.16 Estimated GFR 109 ml/min Glucose 78 (60-115) mg/dL Calcium 9.3 (8.4-10.6) mg/dL Total Bilirubin 0.5 (0.1-1.5) mg/dL AST 27 (12-35) U/L ALT 22 (4-35) U/L Alkaline Phosphatase 56 (40-150) U/L C-Reactive Protein < 0.5 L (0.5-1.0) mg/dL Total Protein 6.9 (6.0-8.3) g/dL Albumin 4.1 (3.3-5.0) g/dL Urine Color Yellow (Yellow) Urine Appearance Clear (Clear) Urine pH 6.5 (5.0-8.5) Ur Specific [place] 1.015 (1.000-1.030) Urine Protein Negative (Negative) Urine Glucose (UA) Negative (Negative) Urine Ketones Negative (Negative) Urine Blood Negative (Negative) Urine Nitrite Negative (Negative) Urine Bilirubin Negative (Negative) Urine Urobilinogen 0.2 (0.2-1.0) Ur Leukocyte Esterase Negative (Negative) Urine RBC 0-2 (0-2) Urine WBC 0-2 (0-5) Ur Squamous Epith Cells Few (None-Few) Urine Bacteria None (None) <Nikita Buenrostro MD - Last Filed: 01/31/25 12:59> Discharge Plan Discharge Clinical Impression: Acute hip pain, Pelvic pain, Lesion of right ovary <Myrna Diamond MD - Last Filed: 02/02/25 14:11> Patient Disposition: Home, Self-Care <Myrna Diamond MD - Last Filed: 02/02/25 14:11> Condition: Stable <Myrna Diamond MD - Last Filed: 02/02/25 14:11> Instructions: Ovarian Cyst (ED), Hip Pain (ED), Pelvic Pain (ED) <Myrna Diamond MD - Last Filed: 02/02/25 14:11> Additional Instructions: As we discussed, please come back to the ER right away if you have worsening pain, high fever, dizziness or lightheadedness, inability to walk, or other concerns. Please follow-up with your regular doctor at the [facility] within the next 2-3 days for recheck. Your regular doctor can help you set up referral to Or thopedics and can arrange a repeat pelvic ultrasound within 6-8 weeks to double check your ovarian cyst. Use [id number]-vrc-mvlyaqn medications such as Tylenol or ibuprofen if needed for pain. You can use the prescription pain killer ketorolac as needed but do not mix ketorolac with ibuprofen because they are both nonsteroidal anti- inflammatories. Use the prescription pain killer, [place], as needed but be careful because [place] causes dizziness, drowsiness, constipation, and can be addictive. <Myrna Diamond MD - Last Filed: 02/02/25 14:11> Prescriptions: New hydrocodone-acetaminophen 5-325 mg tablet 1 - 2 tab PO Q4-6H PRN (Reason: pain) Qty: 10 0RF ketorolac 10 mg tablet 10 mg PO Q8H PRN (Reason: pain) Qty: 20 0RF Rx Instructions: maximum total duration of 5 days from all oral, intranasal, or parenteral formulations No Action levothyroxine 25 mcg tablet 37.5 mcg PO QAM escitalopram oxalate 20 mg tablet 20 mg PO QAM <Myrna Diamond MD - Last Filed: 02/02/25 14:11> Follow Up/Referrals: José Luis Ferro MD [Referring] - <Myrna Diamond MD - Last Filed: 02/02/25 14:11> Stand Alone Forms: [facility] Info Instructions <Myrna Diamond MD - Last Filed: 02/02/25 14:11>
--- NOTE | 2025-01-31 07:52 | CRLHL7_ITS ---
For Patients: As a result of the Century Cures Act, medical imaging exams and procedure reports are released immediately into your electronic medical record. You may view this report before your referring provider. If you have questions, please contact your health care provider. INDICATION: Hip and pelvic pain COMPARISON: None. TECHNIQUE: AP pelvis, AP right hip, frog-leg right hip, cross-table lateral right hip. FINDINGS: No fracture. Normal hip joint alignment. Joint spaces are normal. Mild degeneration of the pubic symphysis. No destructive focal bone lesions. Soft tissues are normal. IMPRESSION: Normal pelvis and right hip radiographs. Dictated by Seda Estrada MD @ 01/31/2025 8:55:49 AM (Electronically Signed)
--- OUTSIDE RECORDS SUMMARY | 2025-01-31 08:04 | XMS_ITS | Clinical Summary ---
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 XR MAMMO TEGAN BILAT SCREEN IMPLANT [[id number]] CLINICAL HISTORY: This is an asymptomatic 49 [...] W REFLEX MEASURED LDL (12/25/2023 4:30 PM PATTERN GATER) CHOLESTEROL,TOTAL 204(H) 100 - 199 mg/dL 12/26/2023 3:07 PM PATTERN GATER [facility] Comment: Cholesterol, Total Reference Ranges Desirable <200 mg/dL Borderline 200-239 mg/dL High >=240 mg/dL TRIGLYCERIDES 80 <150 mg/dL 12/26/2023 3:07 PM PATTERN GATER [facility] HDL CHOLESTEROL 87 >40 mg/dL 3:07 PM PATTERN GATER [facility] NON-HDL CHOLESTEROL 117 <145 mg/dl 12/26/2023 3:07 PM PATTERN GATER [facility] CHOL/HDL RATIO 2.34 <4.50 12/26/2023 3:07 PM PATTERN GATER [facility] LDL CHOLESTEROL 101 <=130 mg/dL 12/26/2023 3:07 PM PATTERN GATER [facility] VLDL CHOLESTEROL 16 <=30 mg/dL 12/26/2023 3:07 PM PATTERN GATER [facility] PROVIDER ORDERED STATUS RANDOM 12/26/2023 3:07 PM PATTERN GATER [facility] Blood BLOOD SPECIMEN / Unknown Venipuncture / Unknown 12/25/2023 4:30 PM PATTERN GATER 12/25/2023 4:30 PM PATTERN GATER us Karen Larkin MD CHEMISTRY Final Resul t [facility] [address] [place] [address], [place] * SCAN-COLONOSCOPY (01/10/2023 3:00 PM PATTERN GATER) Narrative Procedure Note Bernardo Motley MD - 01/10/2023 2:11 PM CST [facility] [address], [address], [place] [address] Patient Name: Marisa Uriarte Gender: Female Exam Date: 01/10/2023 Visit Number: [id number] Age: 47 Years Date of : 1975 Attending MD: Bernardo Motley MD Medical Record#: [id number] Procedure: Colonoscopy Indications: Diarrhea Follow up adenomatous [...] signed by: Masoud Pruett MD Interpreted at [facility]ive [facility], [address] [place], [place] [id number] Orders Instruction(s)/Education: Instruction/Education Timeframe Assessment Colon Cancer [...] Most Recently Relevant to Health Maintenance Insurance [facility] ADVANTAGE Advance Directives * Full [...] 4:19 PM 09/09/2011 2:06 PM Care Teams Vocational Rehabilitation Counselor Relationship Specialty Start Date End Date Karen Larkin MD [address] [place] [address] PCP - General Family Practice 09/25/23
--- OUTSIDE RECORDS SUMMARY | 2025-01-31 08:04 | XMS_ITS | Clinical Summary ---
Author Organization [facility] Address [address] [place] [address] Care Team Providers Care Mid Level Project Manager Name Role Phone Hair Carnes MD Unavailable [phone] Karen Larkin MD Primary Care Provider Allergies [...] migh t be different from the original. 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 [address] [place] [address], [facility] * (ABNORMAL) Basic metabolic panel (03/15/2024 9:26 AM CDT) Sodium 136 135 - 145 mmol/L 03/15/2024 10:06 AM CDT [facility] Comment:Reference intervals for this test were updated on 08/05/2023 to more accurately reflect our healthy population. There may be differences in the flagging of prior results with similar values performed with this method. Interpretation of those prior results can be made in the context of the updated reference intervals. Potassium 3.5 3.4 - 5.3 mmol/L 03/15/2024 10:06 AM [facility] Chloride 98 98 - 107 mmol/L 03/15/2024 10:06 AM [facility] Carbon Dioxide (CO2) 27 22 - 29 mmol/L 03/15/2024 10:06 AM [facility] Anion Gap 11 7 - 15 mmol/L 03/15/2024 10:06 AM [facility] Urea Nitrogen 11.2 6.0 - 20.0 mg/dL 03/15/2024 10:06 AM [facility] Creatinine 0.74 0.51 - 0.95 mg/dL 03/15/2024 10:06 AM [facility] GFR Estimate >90 >60 mL/min/1. 73m2 03/15/2024 10:06 AM [facility] Calcium 9.6 8.6 - 10.0 mg/dL 03/15/2024 10:06 AM [facility] Glucose 118(H) 70 - 99 mg/dL 03/15/2024 10:06 AM [facility] Blood BLOOD SPECIMEN / Unknown Venipuncture / Unknown 03/15/2024 9:26 AM CDT 03/15/2024 9:33 AM CDT Alon Arndt DO LAB - BLOOD ORDERABLES F inal Result [facility] [address] [place] [address], [facility] from Last 3 Months or Most Recently Relevant to Health Maintenance Insurance [place] [employer] Care Teams Mid Level Project Manager Relationship Specialty Start Date End Date Karen Larkin MD [address] [place] [address] PCP - General 04/20/24 Hair Carnes MD [address] [address] Assigned Heart and Vascular Provider 04/01/24
[2025-01-31] MEDS: KETOROLAC 15 MG/ML inj IVP (08:47)
[2025-01-31 09:01] LABS: Appearance Urine Clear (Clear); Bilirubin Urine Negative (Negative); Blood Urine Negative (Negative); Color Urine Yellow (Yellow); Glucose Urine Negative (Negative); Ketones Urine Negative (Negative); Leukocyte Esterase Urine Negative (Negative); Nitrite Urine Negative (Negative); Protein Urine Negative (Negative); Specific Gravity Urine 1.015 (1.000-1.030); Urobilinogen Urine 0.2 (0.2-1.0); pH Urine 6.5 (5.0-8.5)
[2025-01-31 09:03] LABS: Basophils Absolute Auto 0.02 K/uL (0.00-0.30); Basophils Percent Auto 0.3 % (0.0-3.0); Eosinophils Absolute Auto 0.05 K/uL (0.00-0.50); Eosinophils Percent Auto 0.7 % (0.0-7.0); Hematocrit 38.3 % (33.0-51.0); Hemoglobin* 13.2 gm/dL (12.0-16.0); Immature Granulocytes Abs Auto 0.02 K/uL (0.00-0.30); Immature Granulocytes Pct Auto 0.3 %; Lymphocytes Absolute Auto 1.72 K/uL (0.90-2.90); Lymphocytes Percent Auto 25.5 % (20-44); Mean Corpuscular HGB Conc 35 gm/dL (32-36); Mean Corpuscular Hemoglobin 31 pg (26-34); Mean Corpuscular Volume 89 fL (80-100); Monocytes Percent Auto 10.7 % (0.0-11.0); Neutrophils Absolute Auto 4.21 K/uL (1.7-7.0); Neutrophils Percent Auto 62.5 % (42.0-72.0); Platelet Count* 228 K/uL (140-440); RDW Coefficient of Variation % 13.9 % (11.5-15.5); Red Blood Count 4.31 m/uL (4.00-5.20); White Blood Count* 6.74 K/uL (4.50-11.00)
[2025-01-31 09:07] LABS: Slide Review Reflex No
[2025-01-31 09:08] LABS: RBC Urine 0-2 (0-2); Squamous Epithelial Cell Urine Few (None-Few); WBC Urine 0-2 (0-5)
[2025-01-31 09:13] LABS: Albumin* 4.1 g/dL (3.3-5.0); Chloride* 99 mmol/L (96-114)
[2025-01-31 09:14] LABS: Potassium* 3.2 mmol/L (3.6-5.1); Sodium* 135 mmol/L (135-149)
[2025-01-31 09:16] LABS: Alanine Aminotransferase* 22 U/L (4-35); Aspartate Amino Transferase* 27 U/L (12-35); Blood Urea Nitrogen* 17 mg/dL (7-30); Creatinine* 0.6 mg/dL (0.5-1.5); Est. Creatinine Clearance* 113.16; Estimated Glomerular Filt Rate 109 ml/min
[2025-01-31 09:17] LABS: Alkaline Phosphatase* 56 U/L (40-150); Anion Gap 7 mEq/L (7-15); Bilirubin Total* 0.5 mg/dL (0.1-1.5); Calcium* 9.3 mg/dL (8.4-10.6); Carbon Dioxide* 29 mmol/L (20-32); Glucose* 78 mg/dL (60-115); Total Protein* 6.9 g/dL (6.0-8.3)
[2025-01-31 09:30] LABS: C Reactive Protein* < 0.5 mg/dL (0.5-1.0)
[2025-01-31 09:41] VITALS: BP 121/90; PULSE 71; RESP 18; TEMP 36.9; O2SAT 99
--- NOTE | 2025-01-31 10:17 | CRLHL7_ITS ---
For Patients: As a result of the Century Cures Act, medical imaging exams and procedure reports are released immediately into your electronic medical record. You may view this report before your referring provider. If you have questions, please contact your health care provider. INDICATION: RIGHT HIP AND PELVIC PAIN, ?DIVERTICULITIS, HX LIVER CYST TECHNIQUE: CT of the abdomen and pelvis was obtained with 76 mL of Isovue 370 intravenous contrast. Please note that all CT scans at this facility use dose modulation, iterative reconstruction, and/or weight-based dosing when appropriate to reduce radiation dose to as low as reasonably achievable. COMPARISON: None. FINDINGS: Lower thorax: Bilateral breast prostheses. Liver and biliary tree: Normal. Gallbladder: Status post cholecystectomy. Spleen: Normal. Pancreas: Normal. Adrenal glands: Normal. Kidneys and ureters: No hydronephrosis. No obstructing renal calculi. Gastrointestinal tract: Scattered colonic diverticulosis without CT evidence of acute diverticulitis. Small to moderate stool burden. No evidence of acute appendicitis. No evidence of bowel obstruction. Likely transient intussusception of the small bowel in the left abdomen (), this is typically incidental and of no clinical significance. Peritoneal cavity: Normal. Bladder: Underdistended. Pelvic organs: Status post hysterectomy. 3.0 centimeter right adnexal cystic structure (). Vasculature: Minimal calcification. Lymph nodes: Normal. Abdominal wall: Normal. Musculoskeletal: Moderate degenerative changes of the visualized spine. Mild degenerative changes of the bilateral hips. IMPRESSION: 3.0 centimeter right adnexal cystic structure. Consider pelvic ultrasound for further evaluation. Please note that all CT scans at this facility use dose modulation, iterative reconstruction, and/or weight-based dosing when appropriate to reduce radiation dose to as low as reasonably achievable. Dictated by Bhargav Lara MD @ 01/31/2025 10:51:18 AM (Electronically Signed)
--- NOTE | 2025-01-31 11:35 | CRLHL7_ITS ---
For Patients: As a result of the Century Cures Act, medical imaging exams and procedure reports are released immediately into your electronic medical record. You may view this report before your referring provider. If you have questions, please contact your health care provider. INDICATION: Pelvic pain. Prior hysterectomy, left oophorectomy. TECHNIQUE: Ultrasound pelvis transabdominal and transvaginal. Real-time sonographic images with spectral and color Doppler imaging of the ovaries were obtained. COMPARISON: CT abdomen/pelvis earlier same day, dated 01/31/2025. FINDINGS: Uterus: Surgically absent. Free fluid: No significant pelvic free fluid. Right ovary: 4.7 x 3.0 x 4.4 cm. Complex mixed cystic and solid lesion, with components of reticular echogenicities measuring 3.2 x 2.6 x 3.3 cm, favored to reflect a hemorrhagic cyst. Normal arterial and venous blood flow. Left ovary: Surgically absent. IMPRESSION: 1. Complex mixed cystic and solid lesion with components of reticular echogenicities in the right ovary measuring up to 3.3 cm, favored to reflect a hemorrhagic cyst. Recommend follow-up pelvic ultrasound in 6-8 weeks. 2. Post hysterectomy and left oophorectomy. Dictated by Manolo Gerard MD @ 01/31/2025 12:30:31 PM (Electronically Signed)
[2025-01-31 11:40] VITALS: BP 122/86; PULSE 72; RESP 18; TEMP 36.5; O2SAT 100
== END 2025-01-31 13:14 | disposition home or self-care (01) ==
PROVIDERS: Family Medicine; Emergency Provider Emergency Medicine; PCP Family Medicine
DX: R10.2 Pelvic and perineal pain (principal); M25.551 Pain in right hip; N83.8 Other noninflammatory disorders of ovary, fallopian tube and broad ligament
CPT/HCPCS: 36415; 73502; 74177; 76830; 76856; 80053; 81001; 85025; 86140; 93976; 96374; 99284; 99285; J1885; Q9967